=== PATIENT | female | born 1970 | race Caucasian/White ===

== ENCOUNTER 2019-10-16 11:04 | Day surgery (SDC) | payer OTHER, SELFPAY ==
[~2019-10-16] VITALS: Ht 149.9 cm; Wt 88.9 kg
[2019-10-16] MEDS ORDERED: MIDAZOLAM 2 MG/2 ML VIAL ONE (11:36)
[2019-10-16] MEDS ORDERED: diphenhydrAMINE 50 MG/ML VIAL ONE (11:36)
[2019-10-16] MEDS ORDERED: fentaNYL citrate 0.05 MG/ML VIAL ONE (11:36)
[2019-10-16] MEDS: MIDAZOLAM 2 MG/2 ML VIAL IVP ONE (11:41)
[2019-10-16] MEDS: fentaNYL citrate 0.05 MG/ML VIAL IVP ONE (11:42)
== END 2019-10-16 12:45 | disposition home or self-care (01) ==
LOC: MFCC 11:04 → MDS 11:04
PROVIDERS: ATTEND Internal Medicine Gastroenterology
DX: R11.2 Nausea with vomiting, unspecified (principal); Z86.010 Personal history of colon polyps; Z98.84 Bariatric surgery status; Z88.1 Allergy status to other antibiotic agents; Z88.8 Allergy status to other drugs, medicaments and biological substances; Z79.899 Other long term (current) drug therapy; Z98.0 Intestinal bypass and anastomosis status; Z20.828 Contact with and (suspected) exposure to other viral communicable diseases
CPT/HCPCS: 43235; J2250; J3010; U0003; J1200

== ENCOUNTER 2020-05-20 09:08 | Day surgery (SDC) | payer OTHER, SELFPAY ==
[~2020-05-20] VITALS: Ht 149.9 cm; Wt 78.0 kg
[2020-05-20] MEDS ORDERED: diphenhydrAMINE 50 MG/ML VIAL ONE (10:16)
[2020-05-20] MEDS ORDERED: fentaNYL citrate 0.05 MG/ML VIAL ONE (10:16)
[2020-05-20] MEDS ORDERED: MIDAZOLAM 2 MG/2 ML VIAL ONE (10:16)
[2020-05-20] MEDS ORDERED: LIDOCAINE 2% 100 MG/5 ML UJET TP ONE ×2 (10:17→14:30)
[2020-05-20] MEDS ORDERED: MIDAZOLAM 2 MG/2 ML VIAL IVP ONE (10:49)
[2020-05-20] MEDS ORDERED: fentaNYL citrate 0.05 MG/ML VIAL IVP ONE (14:30)
== END 2020-05-20 11:40 | disposition home or self-care (01) ==
LOC: MOR 09:08 → MMU 09:08 → MOR 11:40
PROVIDERS: ATTEND Internal Medicine Gastroenterology
DX: Z12.11 Encounter for screening for malignant neoplasm of colon (principal); R11.2 Nausea with vomiting, unspecified; Z86.010 Personal history of colon polyps; Z98.84 Bariatric surgery status; Z20.828 Contact with and (suspected) exposure to other viral communicable diseases
CPT/HCPCS: 45378; J2250; J3010; J7030; U0003; J1200